=== PATIENT | female | born 1955 | race Caucasian/White ===

== ENCOUNTER → 2023-10-24 06:30 | Day surgery (SDC) | payer OTHER, SELFPAY | LOC: GI 06:30 | PROVIDERS: ATTENDING PHYSICIAN Specialist; FAMILY PHYSICIAN Internal Medicine Cardiovascular Disease | DX: Z12.11 Encounter for screening for malignant neoplasm of colon (principal); K57.30 Diverticulosis of large intestine without perforation or abscess without bleeding; K63.5 Polyp of colon | CPT/HCPCS: 45380; 88305 ==

== ENCOUNTER → 2023-12-31 08:46 | Outpatient (REF) | payer OTHER, SELFPAY | LOC: RAD 08:46 | PROVIDERS: ATTENDING PHYSICIAN Obstetrics & Gynecology; FAMILY PHYSICIAN Family Medicine | DX: Z12.31 Encounter for screening mammogram for malignant neoplasm of breast (principal); Z78.0 Asymptomatic menopausal state | CPT/HCPCS: 77063; 77067; 77080 ==

== ENCOUNTER 2025-03-17 21:18 | Emergency (ER) | payer OTHER, SELFPAY ==
[2025-03-17 21:24] VITALS: BP 91/61
[2025-03-17 22:05] LABS: Hematocrit 37.5 % (37.0-47.0); Hemoglobin 13.1 g/dL (12.0-16.0); Mean Corp Hgb Conc. 34.9 g/dL (33.0-37.0); Mean Corpuscular Volume 87.8 fL (81.0-99.0); Nucleated Red Blood Cells % 0 %; Platelet Count 163 10^3/uL (130-400); Red Cell Dist. Width 12.2 % (11.5-14.5)
[2025-03-17 22:12] LABS: ALT (SGPT) 28 U/L (0-35); AST (SGOT) 27 U/L (14-36); Albumin 4.7 g/dl (3.5-5.0); Alkaline Phosphatase 42 U/L (38-126); Blood Urea Nitrogen 19 mg/dl (7-17); Calcium 9.2 mg/dl (8.4-10.2); Carbon Dioxide 23 mmol/L (22-30); Chloride 108 mmol/L (98-107); Glucose 130 mg/dl (70-99); Potassium 4.0 mmol/L (3.5-5.1); Sodium 136 mmol/L (135-145); Total Protein 7.7 g/dl (6.3-8.2); eGFR > 60.00
[2025-03-17 22:25] LABS: Troponin I < 0.012 ng/ml
[2025-03-17 23:43] VITALS: BP 96/65
[2025-03-18] VITALS (14 sets, daily range): BP systolic 81–112; BP diastolic 61–74; PULSE 47–51
[2025-03-18] MEDS: MOTRIN 600 MG PO (03:11)
--- NOTE | 2025-03-18 05:29 | ED.GENMED ---
History of Present Illness
General
Chief Complaint: Fainting/Passed Out
Source: patient
Exam Limitations: none
Time Seen by Provider: 03/18/25 02:27
Nursing documentation reviewed up to this point in time: agreed with
History of Present Illness
History of Present Illness:
see MDM
Past History
Past History
ED Past Medical History: Other ( diverticulitis, diverticulosis, anemia, C-diff, Kidney stones)
ED Past Surgical History: None
Social History
Tobacco: Non-smoker
Alcohol: Occasional
Drug: None
Personal:
Living: with family
Employment: Not employed
Family History
Family History: Other (no colon ca)
Phy Exam
Physical Exam
Physical Exam:
GENERAL: Alert , in no apparent distress, awake and alert
head: nontender
no masses
EYE: pupils equal and reactive
NECK: Supple, no midline tenderness
ENT: o/p clr, mmm.
CARDIAC: Bradycardic 50s, no murmur, no edema
LUNGS: Clear breath sounds bilaterally, no acute respiratory distress, no wheezes/rales/rhonchi
ABDOMEN: Soft, without focal tenderness, no r/g, no cvat, normal bowel sounds
NEUROLOGICAL: Alert and oriented, no focal neuro deficits
SKIN: Warm and dry, skin intact.
MUSCULOSKELETAL: No edema, well perfused. neg saad's sign
Back: no bruising
no midline upper back tendnerss
mild coccyx tenderness
painful flexion
neg straight leg raise
normal sensation in leg
PSYCH: Normal and appropriate interaction.
Course
Orders/Labs/Results
Orders:
Orders
03/17/25 21:32
Electrocardiogram (*1) Urgent
Reason for Study: Other
Other Reason for Exam: Respiratory Distress
Cardiac Monitoring- Treatment ONCE
EKG- Treatment ONCE
IV Insert/Care/Rem.- Treatment PRN
O2 Therapy [RESP] Urgent
Titrate/Wean O2 to maintain O2 sat greater than (%): 93
Special Instructions: TO MAINTAIN CONTINUOUS O2 SATS >/= 93%
Pulse Ox/cont/shift [RESP] Urgent
Quantity: 1
Special Instructions: continuous pulse ox
03/17/25 21:44
Lumbar Spine Complete, 4 View [CR Lumbar Spine Comp Min 4 Vw*] Urgent
Comment:
Reason For Exam: lower back pain from fall
03/17/25 21:53
Complete Blood Count/With Diff Urgent
Comprehensive Metabolic Panel Urgent
NT-proBNP Urgent
Troponin I Urgent
03/17/25 22:18
CT Head W/o Iv Contrast Urgent
Comment:
Reason For Exam: syncope, headache
03/18/25 03:02
Ibuprofen [Motrin] 600 mg PO NOW STA
Abnormal Lab Results
03/17/25
21:53
Chloride 108 H mmol/L
(98-107)
BUN 19 H mg/dl
(7-17)
Glucose 130 H mg/dl
(70-99)
03/17/25 21:53
03/17/25 21:53
Vital Signs
Initial and Last Documented VS:
Initial Vital Signs
Temp Pulse Resp BP Pulse Ox
36.6 C 61 20 91/61 97
03/17/25 21:24 03/17/25 21:24 03/17/25 21:24 03/17/25 21:24 03/17/25 21:24
Last Documented Vital Signs
Temp Pulse Resp BP Pulse Ox
36.6 C 57 28 112/74 96
03/17/25 21:24 03/18/25 03:01 03/18/25 03:01 03/18/25 03:01 03/18/25 03:01
MDM/Problems Addressed
Differential Diagnosis Includes:
see MDM
MDM/Problems Addressed:
Note:
CHIEF COMPLAINT(S)
Syncope (fainting episode)
HISTORY OF PRESENT ILLNESS
The patient is a 69-year-old female who experienced a fainting episode earlier this evening around 8:00 PM. The patient reports sitting and watching TV before getting up to assist her son with fixing a refrigerator door. During this activity, she
felt lightheaded while standing and subsequently bent over. She describes that she felt dizzy and lost consciousness, falling backward onto the carpet, breaking her fall with her buttocks. After regaining consciousness, the patient experienced
profuse sweating, nausea, and an inability to alleviate her symptoms by putting her head between her legs, which is usually effective for her. She reported feeling that her blood pressure was low and could not get it under control.
The episode occurred at home and there were no recent changes in her medication nor any notable changes in her eating or drinking habits before the incident. The patient has a history of vasovagal syncope, typically triggered by pain or distress
related to needles or injury. There was no chest pain or palpitations reported during todays episode. She described the incident as more severe compared to her typical experiences, stating that she could not regain her composure nor stand after the
fainting. Her son reported a brief loss of consciousness, during which she remained down for a few seconds. The emergency medical service (EMS) was called, and her blood pressure was recorded at 79 mmHg initially, later rising to 95 mmHg.
The patient has experienced intermittent lightheadedness since arriving at the hospital but has been able to ambulate to the bathroom without recurrence of the severe symptoms. The earlier hypotensive event and subsequent symptoms seem likely
related to vagal episodes, given her history and presentation.
EXTERNAL RECORDS REVIEWED
The patients prior medical records indicate she had a CT scan of the head and spine x-rays, both of which were unremarkable.
SOCIAL DETERMINANTS AFFECTING HEALTH
The patient reported recent issues with home air conditioning, resulting in a hot environment which may have contributed to her dehydration or vasovagal response.
MEDICATIONS
The patient currently takes Furosemide (Lasix).
REVIEW OF SYSTEMS
- Cardiovascular: No heart racing or chest pain during the episode.
- Neurological: Lightheadedness and brief loss of consciousness reported.
- Musculoskeletal: Sore neck but no acute injury from the fall.
PHYSICAL EXAM
- Neurological: Alert and oriented. Examination without focal deficits.
- Cardiovascular: No acute abnormalities noted.
- Nursing notes reviewed and vital signs reviewed.
PLAN
The plan includes monitoring and reassessing the patients condition, ensuring hydration, and checking laboratory results to screen for anemia, electrolyte imbalances, or underlying cardiac events. The patient was advised to lay down if similar
symptoms arise in the future to help manage potential hypotensive episodes more effectively.
DIFFERENTIAL DIAGNOSIS
The Differential Diagnosis includes, in no particular order and is not limited to:
1. Vasovagal syncope
2. Orthostatic hypotension
3. Dehydration
4. Cardiac arrhythmia
5. Anemia
6. Electrolyte imbalance
7. Postural hypotension
8. Transient ischemic attack (TIA)
9. Acute coronary syndrome
10. Seizure
reassessed after orthostatics reviewed, neg
xrays indep reivewed no fx
ct head neg
appreciate normal wbc, hg
bun slightly elevated probably prerenal dehydration
was given IVF
ekg is sinus bradycardia without ischemic changes, no st elevation/depression, no t wave inversions
sh eis resting comfortably hr 50s
sometimes high 40s
this is normal for her
likely pt had orthostasis or vasovagal syncope
probably dehydration contributed
unlikely to be dysrhthmia
will refer to outpatient cards for echo
d/w ed attending dr. leo
d/c home
*Pulse Oximetry
SaO2: 96
Oxygen Mode of Delivery: Room air
Patient hypoxic: no (98)
*Critical Care Note
Total Time (30-74mins, 75-104mins- exclusive of procedures): Not Applicable
ED Attending Note
-
Portions of this chart may have been created with voice recognition software.� Occasional wrong word or��sound alike� substitutions may have occurred due to the inherent limitations of voice recognition software.
Discharge Plan
Departure
Patient Disposition: Home (Routine Discharge)
Date of Disposition: 03/18/25
Time of Disposition: 03:21
Patient with high blood pressure during this ER visit?: No
Condition: Fair
Covid-19: Not Applicable
Discharge Problem:
Syncope, vasovagal, Bradycardia
Instructions: Syncope (Fainting) (DC)
Prescriptions:
No Action
Fosamax
5 mg PO DAILY
Referrals:
Olaf Quintanilla, DO [Active, Cardiology] - Follow up in 1 week
Bong Ochoa MD [Family Provider, Family Practice]
Activity Restrictions/Additional Instructions:
You likely had a drop in blood pressure as well as heart rate which cause your symptoms. Make sure to sit on the side of the bed or chair before you get up and stand there for a moment so your blood pressure equalizes. Your heart rate is low
resting in the 50s.
You should wear your Apple Watch so that you know if it is going lower. Follow-up with a hand welt butter, you should have an echocardiogram.
Make sure to stay hydrated, I believe you were also mildly dehydrated which contributed to the symptoms.
Your x-ray shows some mild degenerative changes but no fractures. Ibuprofen every 8 hours, ice off-and-on. Your head CT showed no signs of acute injury. Return for any concerns
Interventions
Interventions:
*Risk Screen - Suicide Last Done: 03/17/25 21:24
*General Assessment Last Done: 03/17/25 21:24
*Neglect/Abuse Screening Last Done: 03/17/25 21:24
*ED- Fall Risk Assessment Last Done: 03/17/25 21:24
*ED COVID-19 Vaccine History Last Done: 03/17/25 21:24
*Nursing Disposition Last Done: 03/18/25 03:31
ED- Cardiac Assessment Last Done: 03/18/25 02:00
ED- Neurological Assessment Last Done: 03/18/25 02:00
Discharge Date and Time
Discharge Date/Time: 03/18/25 03:32
Print Language: [id number]
== END 2025-03-18 03:32 | disposition home or self-care (01) ==
LOC: EMR 21:18
PROVIDERS: Student in an Organized Health Care Education/Training Program; EMERGENCY PHYSICIAN Emergency Medicine; FAMILY PHYSICIAN Family Medicine
DX: R55 Syncope and collapse (principal); R00.1 Bradycardia, unspecified; Z87.442 Personal history of urinary calculi
CPT/HCPCS: 99284; 70450; 72110; 80053; 83880; 84484; 85025; 93005

== ENCOUNTER → 2025-04-21 14:54 | Outpatient (REF) | payer OTHER, SELFPAY | LOC: HWRCS 14:54 | PROVIDERS: ATTENDING PHYSICIAN Internal Medicine Cardiovascular Disease; FAMILY PHYSICIAN Family Medicine | DX: R55 Syncope and collapse (principal) | CPT/HCPCS: 93306 ==

== ENCOUNTER → 2025-07-20 08:27 | Outpatient (REF) | payer OTHER, SELFPAY | LOC: WDC 08:27 | PROVIDERS: ATTENDING PHYSICIAN Obstetrics & Gynecology; FAMILY PHYSICIAN Family Medicine | DX: Z12.31 Encounter for screening mammogram for malignant neoplasm of breast (principal) | CPT/HCPCS: 77063; 77067 ==